=== PATIENT | male | born 1990 | race African-American/Black ===

== ENCOUNTER 2024-03-27 09:15 | Day surgery (SDC) | payer OTHER ==
[~2024-03-27] VITALS: Ht 172.7 cm; Wt 78.0 kg
[2024-03-27] VITALS (7 sets, daily range): BP systolic 115–132; BP diastolic 66–89; PULSE 55–76; RESP 13–20; TEMP 97.8; O2SAT 98–100
[~2024-03-27 09:15] MED LIST: NO HOME MEDS
[2024-03-27] MEDS: ceFAZolin 2gm in dextrose, iso 50 ML IV ONE (09:54)
[2024-03-27] MEDS: famotidine 20mg tablet PO ONE (09:54)
[2024-03-27] MEDS: ringers solution, lacted 1,000 ML IV SCH (09:54)
[2024-03-27] MEDS ORDERED: epiNEPHrine 1 mg/ml 30ml MDV ONE (12:03)
[2024-03-27] MEDS ORDERED: ROPIVAcaine 0.5% (5mg/ml) 30ml vial ONE (12:03)
[2024-03-27] MEDS ORDERED: cloNIDine hcl/PF 100mcg/ml inj ONE (12:03)
[2024-03-27] MEDS ORDERED: Thrombin (Bovine) 5,000 unit vial TP ONE (12:04)
[2024-03-27] MEDS ORDERED: gelatin sponge, absorbable (Gelfoam 100) sponge TP ONE (12:04)
[2024-03-27] MEDS ORDERED: fentaNYL/PF 50MCG/1 ML 2ML syringe ONE (12:32)
[2024-03-27] MEDS ORDERED: MIDAZolam 1 MG/ML 5ML VIAL ONE (12:32)
[2024-03-27] MEDS ORDERED: sevoflurane 250ml liquid IH ONE (12:37)
[2024-03-27] MEDS ORDERED: propofol inj 20 ML IV ONE (13:03)
[2024-03-27] MEDS ORDERED: LIDOcaine 1%/PF 5ML 10 MG/ML VIAL ONE (13:03)
[2024-03-27] MEDS ORDERED: dexamethasone sod phosphate 4mg/ml inj. ONE (13:03)
[2024-03-27] MEDS ORDERED: morphine 2 MG/ML inj. syringe IV PRN (13:45)
[2024-03-27] MEDS ORDERED: morphine 4 MG/ML inj SYRINge IV PRN (13:45)
[2024-03-27] MEDS ORDERED: labetalol 20mg/4ml (5mg/ml) syringe IV PRN (13:45)
[2024-03-27] MEDS ORDERED: proCHLORperazine 10 MG/2 ml inj IV PRN (13:45)
[2024-03-27] MEDS ORDERED: ondansetron/PF 4mg/2ml inj IV PRN (13:45)
[2024-03-27] MEDS ORDERED: enalaprilat dihydrate 2.5mg/2ml vial IV PRN (13:45)
[2024-03-27] MEDS ORDERED: ringers solution, lacted 1,000 ML IV SCH (13:45)
[2024-03-27] MEDS ORDERED: meperidine/PF 25mg/ml syringe IV PRN ×2 (13:45)
[2024-03-27] MEDS ORDERED: bacitracin 15gm ointment TP ONE (16:04)
[2024-03-27] MEDS ORDERED: ondansetron/PF 4mg/2ml inj ONE (16:17)
[2024-03-27] MEDS: meperidine/PF 25mg/ml syringe IV PRN (17:02)
== END 2024-03-27 17:34 ==
LOC: PAS 09:15 → EEVIPCON 12:00 → PAS 17:34
PROVIDERS: ATTEND Orthopaedic Surgery
DX: S83.512A Sprain of anterior cruciate ligament of left knee, initial encounter (principal); S83.282A Other tear of lateral meniscus, current injury, left knee, initial encounter; S83.242A Other tear of medial meniscus, current injury, left knee, initial encounter; G89.18 Other acute postprocedural pain; Z87.891 Personal history of nicotine dependence; X58.XXXA Exposure to other specified factors, initial encounter; Y93.89 Activity, other specified; Y92.89 Other specified places as the place of occurrence of the external cause; Y99.8 Other external cause status
CPT/HCPCS: 29880; 29888; 64447; 82948; C1713; J0690; J0735; J1100; J2175; J2250; J2405; J2704; J3010; J3490; J7030; J7120; L1832; Z7506; Z7508; Z7512; A4215; A4618; A6449; A7000; J0171; J2795